=== PATIENT | female | born 1960 ===

== ENCOUNTER 2020-10-13 13:50 | Outpatient (CLI) | payer OTHER ==
[2020-10-13 15:05] VITALS: BP 132/68
--- NOTE | 2020-10-13 15:05 | SLEEP CARE CONSULTATION ---
Information from patient questionnaire entered by Rekha Pappas. I have reviewed and concur with the information entered by Rekha Pappas. This document represents the service I personally performed and the decisions made by me, Vielka Vasquez ARNP. History of Present Illness Service Date and Time: 10/13/2020 1350 Reason for Visit: New patient Chief Complaint: reports: Snoring, Excessive daytime sleepiness (if not doing anything), Frequent awakenings at night. denies: Unrefreshed sleep, Observed pauses in breathing Date of Onset: 5 + years Usual bedtime: 10:30 Time it takes to fall asleep: 5 - 10 minutes Snores at night: Yes (sometimes) Observed to quit breathing while asleep: No Number of times waking at night: 3 + Reasons for waking at night: reports: Other (?). denies: Choking, Snoring, Gasping for air Toss, Turn, or Twitch while sleeping: Yes Recalls having dreams: No Usually gets out of bed at: 6:30 AM Feels refreshed in the morning: No Morning headache: Yes (rarely) Sleepy or fatigued during the day: Yes Ever fallen asleep while driving: No Takes day naps: No Dreams during day naps: No Prior sleep studies: No Additional HPI information: I had the pleasure of seeing SUJATA BALES today regarding the possibility of her having a sleep disorder. Her current complaints are frequent night awakenings, not getting enough sleep at night (4-5 hours), she snores if she sleeps on her right side but no pauses in breathing while sleeping. She can fall asleep but she wakes up several times a night. She is a morning person and does not feel tired when she gets up but does throughout the day. She doesn't remember her dreams very much. She wakes up at night feeling like it is time to get up but it is still nighttime. - Parasomnia Symptoms Ever been unable to move upon waking from sleep: No Walks in sleep: No Talks in sleep: No Ever acted out dreams in sleep: No Ever felt weak in the knees when startled or emotional: No Bothered by creepy, crawly, restless sensations in legs: No Problems with memory or concentration: Yes (sometimes) Subjective Initial [place] Sleepiness Scale score: 6 (in 2020) Past Medical History Past Medical History: reports: Asthma. 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 Patient is and lives in [place]. Have you smoked in the past 12 months: No Alcohol use: No Caffeine use: Yes Caffeine amount and frequency: 1 cup in the mornings Family History Family history of sleep disordered breathing: Yes (Father) Family Hx Sleep Apnea: Father: Snoring Allergies and Home Medications Drug allergies reviewed: Yes (amoxicillin) Home medication list reviewed: Yes (Xopenex, Chiquita (prn)) Review of Systems Cardiovascular: denies: high blood pressure Respiratory: reports: shortness of breath, wheeze Neurological: denies: headaches Ear/Nose/Throat: reports: nasal congestion, dry mouth/throat (sometimes), wisdom teeth removed. denies: tonsillectomy Musculoskeletal: reports: joint swelling Immunologic: reports: sneezing, allergies to food or environment Physical Exam Blood Pressure: 132/68 Cuff size: wrist Heart Rate: 105 O2 Saturation: 98 Height: 5 ft 2 in Weight: 130 lb Body Mass Index: 23.8 BMI Classification: Healthy weight Neck circumference: 13 (inches) HEENT: No craniofacial malformation Nostrils: patent to airflow Turbinates: swollen Mouth and throat: narrow oropharynx Hard palate: normal Uvula visualization: 25% Mallampati Class III Tongue: normal in size Tonsils: 2+ Chin and jaw: normal size and position Neck: normal w/o lymphadenopathy or thyromegaly Heart: regular rate and rhythm Lungs: clear bilaterally Impression and Plan 1. Suspected Obstructive Sleep Apnea-Hypopnea Syndrome, as suggested by a history of loud and irregular snoring, frequent awakening during the night, cognitive impairment, and excessive daytime sleepiness. Narrow oropharynx and obesity are common predisposing factors for obstructive sleep apnea-hypopnea syndrome. I recommend proceeding to polysomnography to confirm the diagnosis and to assess severity. If the patient has significant sleep disordered breathing, a manual CPAP titration study will also be performed to find the optimal treatment pressure. I informed the patient of what the sleep studies involve and after some discussion, obtained agreement to proceed. The pathophysiology of obstructive sleep apnea-hypopnea syndrome was discussed with the patient and health risks of cardiovascular and cerebrovascular disease if not treated. AASM brochure for obstructive sleep apnea-hypopnea syndrome given and reviewed. Risks of drowsy driving discussed in detail and patient advised to avoid long distance driving and to [employer] at the first sign of drowsiness. Patient agreed to plan. * Schedule polysomnography +- manual CPAP titration study and return in 1-2 weeks after the study to discuss result and initiate therapy. * Avoid long distance driving or driving when feeling sleepy. * Avoid sedative and muscle relaxant around bedtime. * Review instructions provided by trained office staff on how to prepare for the sleep study. * Return for follow-up after sleep study completed. Visit Type: In Office Time Spent with Patient (minutes): 30 Provider Statement: I spent 100% of the Face to Face Visit with the patient with greater than 50% spent counseling the patient and coordination of care.
== END 2020-10-13 13:51 | disposition home or self-care (01) ==
LOC: SC 13:50
PROVIDERS: ATTEND Nurse Practitioner Family
DX: G47.10 Hypersomnia, unspecified (principal); G47.8 Other sleep disorders; R06.83 Snoring; R41.89 Other symptoms and signs involving cognitive functions and awareness
CPT/HCPCS: 99203; 99212

== ENCOUNTER 2020-10-27 12:53 | Outpatient (CLI) | payer OTHER | END 2020-10-27 12:54 | disposition home or self-care (01) | LOC: SC 12:53 | PROVIDERS: ATTEND Nurse Practitioner Family | DX: G47.10 Hypersomnia, unspecified (principal); G47.8 Other sleep disorders; R06.83 Snoring | CPT/HCPCS: 95806 ==

== ENCOUNTER 2020-11-16 14:18 | Outpatient (CLI) | payer OTHER ==
--- NOTE | 2020-11-16 15:07 | SLEEP CARE CONSULTATION ---
Information from patient questionnaire entered by Rekha Pappas. I have reviewed and concur with the information entered by Rekha Pappas. This document represents the service I personally performed and the decisions made by me, Johnnie Taylor MD, [facility]. History of Present Illness Service Date and Time: 11/16/2020 1418 Initial [place] Sleepiness Scale score: 6 (in 2020) Additional HPI information: HPI: Ms. Underwood returned for follow up of the sleep study she had on 10/27/2020. The test showed no sleep-disordered breathing or hypoxemia. The patient slept mostly in non-supine positions. The patient was informed of these findings. I explained to her that the test was normal. The few respiratory events occurred mainly during supine sleep making the supine AHI slightly elevated at 5.0. The patient says that she normally does not sleep on her back. Her main complaint is frequent awakenings, unrefreshed sleep, and excessive daytime sleepiness. Sleep Study - Results Type of Sleep Study: Home sleep study Prior sleep studies: No Allergies and Home Medications Drug allergies reviewed: Yes Home medication list reviewed: Yes Review of Systems Review of systems same as previous: Yes Physical Exam Vital signs obtained and entered by: not available Height: 5 ft 2 in Impression and Plan IMPRESSION: 1. Fatigue, not explained by sleep-disordered breathing. Because the home sleep apnea test (HSAT) is only designed to diagnose obstructive sleep apnea-hypopnea and nothing else, an in-laboratory polysomnography will be necessary to further evaluate her complaint of frequent awakenings and non- restorative sleep. PLAN: 1. Avoid sleeping supine 2. Return in a few months if her sleep is not better and I will order an in- laboratory polysomnography. Visit Type: Telehealth Video Video Type: VSee Patient Location: Home Location of Provider: Office Patient agrees and consents to this telehealth visit type: Yes Patient agrees to have their insurance billed: Yes Time Spent with Patient (minutes): 10 Provider Statement: I spent 100% of the Telehealth Video Call with the patient with greater than 50% spent counseling the patient and coordination of care.
== END 2020-11-16 14:19 | disposition home or self-care (01) ==
LOC: SC 14:18
PROVIDERS: ATTEND Internal Medicine Pulmonary Disease
DX: R53.83 Other fatigue (principal); G47.8 Other sleep disorders

== ENCOUNTER 2023-12-27 08:44 | Outpatient (CLI) | payer OTHER ==
--- NOTE | 2023-12-27 20:10 | XRAY Report ---
PROCEDURE: Knee 3V BL INDICATIONS: BILATERAL KNEE PAIN TECHNIQUE: 6 views of the knee was obtained. COMPARISON: None FINDINGS: Bones: No fractures or dislocations. No suspicious bony lesions. Moderate medial compartment joint space narrowing present. Lateral compartmental mild joint space narrowing. Soft tissues: Small bilateral knee joint effusion. No suspicious soft tissue calcifications or brittney s. IMPRESSION: Mild to moderate bilateral osteoarthritis Reviewed by: Boris Horton MD on 12/27/2023 7:09 PM [facility] Approved by: Boris Horton MD on 12/27/2023 7:09 PM [facility] Station ID: [id number]
== END 2023-12-27 08:45 | disposition home or self-care (01) ==
LOC: DI.S 08:44
PROVIDERS: ATTEND Registered Nurse
DX: M17.0 Bilateral primary osteoarthritis of knee (principal)